=== PATIENT | male | born 1965 | race Caucasian/White ===

== ENCOUNTER 2021-02-25 10:27 | Outpatient (CLI) | payer BC, SELFPAY ==
--- NOTE | 2021-02-28 10:44 | WPDHOLTEREM ---
Holter/Event Monitor Holter/Event Monitor Date of procedure: 02/25/21 Procedure Type: 48 hour holter monitor Indications: Palpitations Conclusion: 1. 48 hour holter monitor on 02/25/21. 2. Predominant rhythm is sinus rhythm. HR range 47-154 bpm; average HR 81 bpm. 3. There are 21 premature supraventricular complexes, 1 supraventricular couplet and 1 supraventricular triplet. There is one atrial tachycardia at 125 bpm lasting 4 beats. 4. There are 432 premature ventricular complexes and 1 ventricular couplet. No ventricular tachycardia. 5. No sinoatrial or atrioventricular blocks. No significant pauses greater than 2 seconds. 6. Patient reports symptoms of flutter which demonstrate sinus rhythm, HR range 82-103 bpm and one PVC.
== END 2021-02-25 10:28 | disposition home or self-care (01) ==
PROVIDERS: PCP Family Medicine; Visit Provider Family Medicine
DX: R00.2 Palpitations (principal)
CPT/HCPCS: 93225; 93226

== ENCOUNTER 2025-11-10 13:46 | Outpatient (CLI) | payer OTHER, SELFPAY ==
--- NOTE | ~2025-11-10 | CT_ITS ---
EXAMINATION: CT sinus wo con DATE: 11/10/2025 14:01 INDICATION: Chronic sinusitis TECHNIQUE: Computed tomography (CT) of the paranasal sinuses was performed without intravenous contrast. The dose-length product was 280.89 mGy-cm. Automated exposure control and iterative reconstruction technique were employed. COMPARISON: CT dated 01/09/2010 FINDINGS: There is 2.5 cm right maxillary mucous retention cyst. There is mild mucosal thickening of the ethmoid and left sphenoid sinuses. Mastoids are pneumatized. Rightward nasal septal deviation. There is a left-sided gale bullosa. Ostiomeatal units are patent. Mastoids are pneumatized. IMPRESSION: 1. Mild sinus disease. Reviewed, dictated and finalized at location [facility] IMPRESSION: 1. Mild sinus disease.
== END 2025-11-10 13:47 | disposition home or self-care (01) ==
LOC: MICIMG 13:49
PROVIDERS: PCP Nurse Practitioner Family; Visit Provider Otolaryngology
DX: J32.9 Chronic sinusitis, unspecified (principal)
CPT/HCPCS: 70486